=== PATIENT | female | born 1950 | race African-American/Black ===

== ENCOUNTER 2020-12-29 09:00 | Inpatient (IN) ==
[2020-12-29] MEDS ORDERED: GLUCAGON 1 MG VIAL IM PRN ×2 (13:08)
[2020-12-29] MEDS ORDERED: DEXTROSE 50% 25 GM/50 ML VIAL IV PRN ×2 (13:08)
[2020-12-29] MEDS ORDERED: MORPHINE 4 MG/1 ML VIAL IV PRN (13:13)
[2020-12-29] MEDS ORDERED: NITROGLYCERIN SL 0.4 MG TABLET SL PRN (13:13)
[2020-12-29] MEDS ORDERED: CLORAZEPATE 3.75 MG TABLET PO PRN (13:13)
[2020-12-29] MEDS ORDERED: NICOTINE 14 MG/24 HR PATCH TRANSDERM PRN (13:14)
[2020-12-29] MEDS ORDERED: hydrALAZINE 20 MG/1 ML VIAL IV PRN (13:14)
[2020-12-29] MEDS ORDERED: SODIUM CHLORIDE 0.9% 1,000 ML IV SCH (13:30)
[2020-12-29 14:46] LABS: Basophils % 0.6 % (0.0-0.8); Eosinophils # 0.1 10*3/uL (0.0-0.87); Eosinophils % 1.7 % (0.00-10.9); Hematocrit 36.2 VOL% (35.7-47.0); Immature Granulocytes % 0.3 %; Immature Granulocytes Absolute 0.02 #; Lymphocytes # 3.2 10*3/uL (1.4-4.0); Lymphocytes % 45.8 % (21.3-54.2); Mean Corpuscular HGB Conc 33.1 GM/DL (32-36); Mean Corpuscular Volume 99.2 FL (87-102); Mean Platelet Volume 9.8 FL (9.6-12.0); Monocytes % 4.8 % (1.7-12.7); Neutrophils % 46.8 % (38.7-73.9); Platelet Count 246 T/CUMM (130-400); Red Blood Count 3.65 MC/CUMM (3.8-5.5); White Blood Count 7.1 T/CUMM (4-12)
[2020-12-29 15:01] LABS: Alanine Aminotransferase 21 U/L (13-56); Albumin 3.9 G/DL (3.4-5.0); Alkaline Phosphatase 52 U/L (45-117); Aspartate Amino Transferase 10 U/L (0-37); Bilirubin,Total < 0.39 MG/DL (0.2-1.0); Blood Urea Nitrogen 17 MG/DL (7-18); Calcium 9.4 MG/DL (8.5-10.1); Carbon Dioxide 27 MMOL/L (21-32); Estimated Glom Filtration Rate 72 ML/MIN; Glucose 107 MG/DL (74-106); Osmolality,Calculated 282.3 MOS/KG (273-304); Potassium 3.6 MMOL/L (3.5-5.1); Sodium 141 MMOL/L (136-145); Total Protein 7.6 G/DL (6.4-8.3)
[2020-12-29] MEDS: CHLORHEXIDINE 4% SOLN 118 ML BOTTLE TOP SCH ×2 (16:00→20:34)
[2020-12-29] MEDS: INSULIN REGULAR 100 UNIT/ML SUBCUT SCH ×2 (18:25→20:20)
[2020-12-29 20:26] LABS: ABG HCO3 27.9 MMOL/L (20-26); ABG PCO2 42.4 MM HG (35-48); ABG PH 7.438 (7.35-7.45); ABG PO2 70.6 MM HG (80-95); ABG TCO2 25.3 MMOL/L (23-27); Allen Test Positive; Pt O2 Delivery Device Room Air
[2020-12-29] MEDS: CHLORHEXIDINE 0.12% ORAL RINSE 60 ML BOTTLE SWISH/SPIT SCH (22:25)
[2020-12-30] MEDS ORDERED: VANCOMYCIN 1,000 MG VIAL ONE (04:22)
[2020-12-30] MEDS ORDERED: PAPAVERINE 60 MG/2 ML VIAL ONE (04:22)
[2020-12-30] MEDS ORDERED: VANCOMYCIN 500 MG VIAL ONE (04:22)
[2020-12-30] MEDS: CHLORHEXIDINE 4% SOLN 118 ML BOTTLE TOP SCH ×2 (04:46→11:38)
[2020-12-30] MEDS ORDERED: CEFUROXIME INJ 1,500 MG in SYRINGE 1 EACH IV ONE (05:00)
[2020-12-30] MEDS ORDERED: LIDOCAINE 2% 5 ML VIAL ONE ×2 (05:50→09:33)
[2020-12-30] MEDS ORDERED: CALCIUM CHLORIDE 1,000 MG/10 ML VIAL IV ONE ×2 (05:50→09:17)
[2020-12-30] MEDS ORDERED: ETOMIDATE 40 MG/20 ML VIAL IV ONE (05:50)
[2020-12-30] MEDS ORDERED: VECURONIUM 10 MG VIAL IV ONE ×3 (05:50)
[2020-12-30] MEDS ORDERED: MIDAZOLAM 10 MG/2 ML VIAL ONE ×3 (05:51→07:55)
[2020-12-30] MEDS ORDERED: SUFentanil 250 MCG/5 ML AMP ONE ×3 (05:51→07:55)
[2020-12-30] MEDS ORDERED: AMINOCAPROIC ACID 5,000 MG/20 ML VIAL ONE (06:05)
[2020-12-30] MEDS ORDERED: SODIUM CHLORIDE 0.9% 1,000 ML IV ONE (06:06)
[2020-12-30] MEDS ORDERED: LACTATED RINGERS 1,000 ML IV ONE (06:06)
[2020-12-30] MEDS ORDERED: MINERAL OIL/PETROLATUM OPH OINT 3.5 GM TUBE ONE (06:06)
[2020-12-30] MEDS ORDERED: SODIUM CHLORIDE 0.9% 250 ML IV ONE (06:06)
[2020-12-30] MEDS ORDERED: DIAZEPAM 5 MG TABLET PO ONE (06:30)
[2020-12-30] MEDS ORDERED: FAMOTIDINE 20 MG TABLET PO ONE (06:30)
[2020-12-30] MEDS ORDERED: HEPARIN/NACL 0.9% 2 UNITS/ML 500 ML IV ONE ×2 (06:41→08:10)
[2020-12-30 07:31] LABS: ABG Base Excess 0.5 MMOL/L (-2.5-2.5); ABG HCO3 24.9 MMOL/L (20-26); ABG Oxygen Saturation 99.9 % (95-100); ABG PCO2 36.4 MM HG (35-48); ABG PH 7.435 (7.35-7.45); Glucose Heart Surgery 179 MG/DL (74-106); Hematocrit Heart Surgery 32.9 PERCENT (37-47); Hemoglobin Heart Surgery 10.6 G/DL (12.0-16.0); Ionized Calcium Arterial 1.23 MMOL/L (1.21-1.46); PCO2 Patient Temp Arterial 36.4 MMHG; PH Patient Temp Arterial 7.435; Patient Temperature 37 CELCIUS; Potassium Heart/CVR 3.8 MMOL/L (3.5-5.1); Sodium Heart/CVR 140 MMOL/L (135-145)
[2020-12-30 08:07] LABS: Bacteria,Urine Occasional /HPF (Few); Bilirubin,Urine Negative (Negative); Blood, Urine Negative (Negative); Glucose,Urine (UA) Negative (Negative); Ketones,Urine Negative (Negative); Mucus,Urine Occasional /LPF (Occasional); Nitrite,Urine Negative (Negative); Protein,Urine Negative; Squamous Epithelial Cell,Urine Occasional /HPF (0-10); Urine Appearance CLEAR (Clear); Urine Color Yellow (Yellow); Urine Specific Gravity 1.015 (1.001-1.035); Urine Urobilinogen < 2.0 EU/DL (0.2-1.0)
[2020-12-30] MEDS ORDERED: NITROGLYCERIN DRIP 50 MG/250 ML BOTTLE IV ONE ×2 (08:10→20:00)
[2020-12-30] MEDS ORDERED: PHENYLEPHRINE DRIP 20 MG/250 ML PREMIX IV ONE (08:10)
[2020-12-30] MEDS ORDERED: CALCIUM CHLORIDE 1,000 MG/10 ML SYRINGE IV ONE (08:22)
[2020-12-30] MEDS ORDERED: NITROPRUSSIDE 50 MG/2 ML VIAL ONE (08:22)
[2020-12-30] MEDS ORDERED: POTASSIUM CHLORIDE RIDER 100 ML IV ONE (08:22)
[2020-12-30] MEDS ORDERED: PHENYLEPHRINE DRIP 40 MG/250 ML PREMIX IV ONE (08:22)
[2020-12-30] MEDS ORDERED: SODIUM BICARBONATE 50 MEQ/50 ML VIAL IV ONE ×3 (08:22→22:39)
[2020-12-30] MEDS ORDERED: ALBUMIN 5% 12.5 GM/250 ML VIAL IV ONE ×2 (08:23→09:34)
[2020-12-30 08:46] LABS: Hematocrit Heart Surgery 20.8 PERCENT (37-47); Hemoglobin Heart Surgery 6.6 G/DL (12.0-16.0); PCO2 Patient Temp Venous 35.4 MM HG; PH Patient Temp Venous 7.465; PO2 Patient Temp Venous 32.7 MM HG; Potassium Heart/CVR 4.2 MMOL/L (3.5-5.1); VBG HCO3 25.9 MEQ/L (24-28); VBG Oxygen Saturation 70.8 %; VBG PH 7.436; VBG PO2 37.6 MMHG (17-40)
[2020-12-30 09:27] LABS: ABG Base Excess -1.6 MMOL/L (-2.5-2.5); ABG HCO3 23.1 MMOL/L (20-26); ABG PCO2 38.6 MM HG (35-48); ABG PH 7.387 (7.35-7.45); ABG TCO2 21.8 MMOL/L (23-27); Glucose Heart Surgery 300 MG/DL (74-106); Hematocrit Heart Surgery 23.1 PERCENT (37-47); Hemoglobin Heart Surgery 7.4 G/DL (12.0-16.0); Ionized Calcium Arterial 1.28 MMOL/L (1.21-1.46); PCO2 Patient Temp Arterial 38.6 MMHG; PH Patient Temp Arterial 7.387; Patient Temperature 37 CELCIUS; Potassium Heart/CVR 3.3 MMOL/L (3.5-5.1); Sodium Heart/CVR 132 MMOL/L (135-145)
[2020-12-30] MEDS ORDERED: methylPREDNISolone SOD SUC 1,000 MG/8 ML VIAL ONE (09:33)
[2020-12-30] MEDS ORDERED: DEXTROSE 5% KCL 20 MEQ 20 MEQ/1,000 ML BAG IV ONE (09:33)
[2020-12-30] MEDS ORDERED: MAGNESIUM SULFATE 5 GM/10 ML VIAL IV ONE (09:33)
[2020-12-30] MEDS ORDERED: HEPARIN 10,000 UNIT/10 ML VIAL ONE (09:34)
[2020-12-30] MEDS ORDERED: MANNITOL 12.5 GM/50 ML VIAL IV ONE (09:34)
[2020-12-30] MEDS ORDERED: PROTAMINE SULFATE 50 MG/5 ML VIAL IV ONE (09:34)
[2020-12-30] MEDS ORDERED: ALBUMIN 25% 25 GM/100 ML VIAL IV ONE (09:34)
[2020-12-30] MEDS ORDERED: FUROSEMIDE 20 MG/2 ML VIAL ONE (09:34)
[2020-12-30] MEDS ORDERED: DEXTROSE 50% 25 GM/50 ML VIAL IV PRN ×2 (10:03)
[2020-12-30] MEDS ORDERED: MIDAZOLAM 10 MG/2 ML VIAL IV PRN (10:03)
[2020-12-30] MEDS ORDERED: MAGNESIUM SULF RIDER 4 GM in PREMIX 1 EACH IV PRN (10:03)
[2020-12-30] MEDS ORDERED: SODIUM CHLORIDE 0.45% 1,000 ML IV SCH ×2 (10:03)
[2020-12-30] MEDS ORDERED: CHLORHEXIDINE 4% SOLN 118 ML BOTTLE TOP PRN (10:03)
[2020-12-30] MEDS ORDERED: INSULIN REGULAR 100 UNIT/ML IV ONE (10:03)
[2020-12-30] MEDS ORDERED: LACTATED RINGERS 250 ML IV PRN (10:03)
[2020-12-30] MEDS ORDERED: CALCIUM CHLORIDE 1,000 MG/10 ML SYRINGE IV PRN (10:03)
[2020-12-30] MEDS ORDERED: MORPHINE 10 MG/1 ML VIAL IV PRN (10:03)
[2020-12-30] MEDS ORDERED: PHENYLEPHRINE DRIP 40 MG/250 ML PREMIX IV PRN (10:03)
[2020-12-30] MEDS ORDERED: MAGNESIUM SULF RIDER 2 GM in PREMIX 1 EACH IV PRN (10:03)
[2020-12-30] MEDS ORDERED: VECURONIUM 10 MG VIAL IV PRN ×2 (10:03)
[2020-12-30] MEDS ORDERED: ACETAMINOPHEN 650 MG SUPP RECTAL PRN (10:03)
[2020-12-30] MEDS ORDERED: MIDAZOLAM 2 MG/2 ML VIAL IV PRN (10:03)
[2020-12-30] MEDS ORDERED: NITROPRUSSIDE 100 MG in DEXTROSE 5% 250 ML IV PRN (10:03)
[2020-12-30 10:39] LABS: ABG Base Excess -0.6 MMOL/L (-2.5-2.5); ABG HCO3 23.9 MMOL/L (20-26); ABG Oxygen Saturation 97.8 % (95-100); ABG PCO2 37.7 MM HG (35-48); ABG PH 7.408 (7.35-7.45); ABG PO2 91.8 MM HG (80-95); ABG TCO2 21.7 MMOL/L (23-27); Glucose Heart Surgery 223 MG/DL (74-106); Hematocrit Heart Surgery 30.3 PERCENT (37-47); Hemoglobin Heart Surgery 9.8 G/DL (12.0-16.0); Potassium Heart/CVR 3.9 MMOL/L (3.5-5.1)
[2020-12-30] MEDS: LACTATED RINGERS 1,000 ML IV PRN ×2 (10:45→15:03)
[2020-12-30 10:54] LABS: Basophils % 0.4 % (0.0-0.8); Eosinophils # 0.1 10*3/uL (0.0-0.87); Eosinophils % 0.8 % (0.00-10.9); Hematocrit 28.8 VOL% (35.7-47.0); Immature Granulocytes % 0.9 %; Immature Granulocytes Absolute 0.07 #; Lymphocytes # 1.1 10*3/uL (1.4-4.0); Lymphocytes % 14.4 % (21.3-54.2); Mean Corpuscular HGB Conc 33.3 GM/DL (32-36); Mean Corpuscular Volume 99.3 FL (87-102); Mean Platelet Volume 9.8 FL (9.6-12.0); Neutrophils % 79.5 % (38.7-73.9); Platelet Count 198 T/CUMM (130-400); White Blood Count 7.9 T/CUMM (4-12)
[2020-12-30 10:55] LABS: Hemoglobin 9.6 GM/DL (12.0-16.0)
[2020-12-30] MEDS: POTASSIUM CHLORIDE RIDER 20 MEQ in PREMIX 1 EACH IV PRN ×6 (11:03→23:44)
[2020-12-30 11:05] LABS: Albumin 3.5 G/DL (3.4-5.0); Bilirubin,Total 0.7 MG/DL (0.2-1.0); Calcium 9.7 MG/DL (8.5-10.1); Osmolality,Calculated 280.8 MOS/KG (273-304); Potassium 3.9 MMOL/L (3.5-5.1); Total Protein 6.3 G/DL (6.4-8.3)
[2020-12-30 11:07] LABS: Troponin I 0.581 NG/ML (0.00-0.045)
[2020-12-30 11:37] LABS: INR 1.1; PT Patient Result 11.6 SECS (9.8-11.9); Partial Thromboplastin Time 26.4 SECS (23.9-33.8)
[2020-12-30] MEDS: POTASSIUM CHLORIDE RIDER 10 MEQ in PREMIX 1 EACH IV PRN ×3 (11:37→21:22)
[2020-12-30] MEDS: ALBUMIN 5% 12.5 GM in PREMIX 1 EACH IV PRN ×2 (11:54→15:04)
[2020-12-30 12:42] LABS: ABG Base Excess 0.2 MMOL/L (-2.5-2.5); ABG HCO3 24.6 MMOL/L (20-26); ABG Oxygen Saturation 99.6 % (95-100); ABG PCO2 34.1 MM HG (35-48); ABG TCO2 21.6 MMOL/L (23-27); Glucose Heart Surgery 203 MG/DL (74-106); Hematocrit Heart Surgery 29.7 PERCENT (37-47); Hemoglobin Heart Surgery 9.6 G/DL (12.0-16.0); Potassium Heart/CVR 3.8 MMOL/L (3.5-5.1)
[2020-12-30] MEDS: INSULIN REGULAR DRIP 100 ML IV SCH (12:53)
[2020-12-30] MEDS: INSULIN REGULAR 100 UNIT/ML SUBCUT SCH (13:06)
[2020-12-30] MEDS: CHLORHEXIDINE 0.12% ORAL RINSE 60 ML BOTTLE SWISH/SPIT SCH (13:06)
[2020-12-30 15:49] LABS: ABG Base Excess -0.3 MMOL/L (-2.5-2.5); ABG HCO3 24.2 MMOL/L (20-26); ABG PCO2 34.7 MM HG (35-48); ABG PH 7.438 (7.35-7.45); ABG TCO2 21.3 MMOL/L (23-27); Glucose Heart Surgery 157 MG/DL (74-106); Hematocrit Heart Surgery 30.6 PERCENT (37-47); Hemoglobin Heart Surgery 9.9 G/DL (12.0-16.0); Potassium Heart/CVR 3.5 MMOL/L (3.5-5.1)
[2020-12-30] MEDS: CEFUROXIME INJ 1,500 MG in SYRINGE 1 EACH IV SCH (17:17)
[2020-12-30 18:13] LABS: ABG Base Excess -1.9 MMOL/L (-2.5-2.5); ABG HCO3 22.8 MMOL/L (20-26); ABG Oxygen Saturation 98.7 % (95-100); ABG PCO2 38.9 MM HG (35-48); ABG PH 7.379 (7.35-7.45); ABG TCO2 21.1 MMOL/L (23-27); Glucose Heart Surgery 166 MG/DL (74-106); Hematocrit Heart Surgery 28.9 PERCENT (37-47); Hemoglobin Heart Surgery 9.3 G/DL (12.0-16.0); Potassium Heart/CVR 3.8 MMOL/L (3.5-5.1)
[2020-12-30] MEDS: INSULIN REGULAR 100 UNIT/ML IV PRN ×2 (18:25→21:56)
[2020-12-30] MEDS: MORPHINE 4 MG/1 ML VIAL IV PRN ×2 (19:50→22:48)
[2020-12-30] MEDS ORDERED: NITROGLYCERIN DRIP 50 MG/250 ML BOTTLE IV PRN (20:03)
[2020-12-30 20:15] LABS: ABG Base Excess -4.9 MMOL/L (-2.5-2.5); ABG HCO3 20.4 MMOL/L (20-26); ABG Oxygen Saturation 98.1 % (95-100); ABG PCO2 38.3 MM HG (35-48); ABG PH 7.336 (7.35-7.45); ABG TCO2 18.7 MMOL/L (23-27); Glucose Heart Surgery 181 MG/DL (74-106); Hematocrit Heart Surgery 31.7 PERCENT (37-47); Hemoglobin Heart Surgery 10.3 G/DL (12.0-16.0); Potassium Heart/CVR 3.5 MMOL/L (3.5-5.1)
[2020-12-30] MEDS ORDERED: CHLORHEXIDINE 0.12% ORAL RINSE 60 ML BOTTLE SWISH/SPIT SCH (21:00)
[2020-12-30] MEDS: ONDANSETRON 4 MG/2 ML VIAL IV PRN (21:05)
[2020-12-30] MEDS ORDERED: FUROSEMIDE 40 MG/4 ML VIAL IV ONE (21:09)
[2020-12-30 22:24] LABS: ABG Base Excess -6.9 MMOL/L (-2.5-2.5); ABG HCO3 18.8 MMOL/L (20-26); ABG PCO2 35.7 MM HG (35-48); ABG PH 7.323 (7.35-7.45); ABG PO2 85.6 MM HG (80-95); ABG TCO2 16.9 MMOL/L (23-27); Glucose Heart Surgery 209 MG/DL (74-106); Hematocrit Heart Surgery 32.2 PERCENT (37-47); Hemoglobin Heart Surgery 10.4 G/DL (12.0-16.0); Potassium Heart/CVR 3.7 MMOL/L (3.5-5.1)
[2020-12-30 23:38] LABS: ABG Base Excess -2.8 MMOL/L (-2.5-2.5); ABG HCO3 22.1 MMOL/L (20-26); ABG Oxygen Saturation 95.6 % (95-100); ABG PCO2 39.5 MM HG (35-48); ABG PH 7.362 (7.35-7.45); ABG PO2 79.3 MM HG (80-95); ABG TCO2 20.4 MMOL/L (23-27); Glucose Heart Surgery 192 MG/DL (74-106); Hematocrit Heart Surgery 31.8 PERCENT (37-47); Hemoglobin Heart Surgery 10.3 G/DL (12.0-16.0); Potassium Heart/CVR 3.6 MMOL/L (3.5-5.1)
[2020-12-31] MEDS: INSULIN REGULAR 100 UNIT/ML IV PRN (00:01)
[2020-12-31] MEDS: POTASSIUM CHLORIDE RIDER 10 MEQ in PREMIX 1 EACH IV PRN ×2 (00:21→03:37)
[2020-12-31] MEDS: INSULIN REGULAR DRIP 100 ML IV SCH (00:26)
[2020-12-31 01:41] LABS: ABG HCO3 23.6 MMOL/L (20-26); ABG Oxygen Saturation 97.4 % (95-100); ABG PCO2 38.6 MM HG (35-48); ABG PH 7.396 (7.35-7.45); ABG PO2 89.1 MM HG (80-95); ABG TCO2 21.4 MMOL/L (23-27); Glucose Heart Surgery 133 MG/DL (74-106); Hematocrit Heart Surgery 31.9 PERCENT (37-47); Hemoglobin Heart Surgery 10.3 G/DL (12.0-16.0); Potassium Heart/CVR 3.9 MMOL/L (3.5-5.1)
[2020-12-31 02:34] LABS: ABG Base Excess -0.9 MMOL/L (-2.5-2.5); ABG HCO3 23.7 MMOL/L (20-26); ABG Oxygen Saturation 96.2 % (95-100); ABG PCO2 38.8 MM HG (35-48); ABG PH 7.395 (7.35-7.45); ABG PO2 79.2 MM HG (80-95); ABG TCO2 21.6 MMOL/L (23-27); Glucose Heart Surgery 108 MG/DL (74-106); Hematocrit Heart Surgery 31.9 PERCENT (37-47); Hemoglobin Heart Surgery 10.3 G/DL (12.0-16.0); Potassium Heart/CVR 3.7 MMOL/L (3.5-5.1)
[2020-12-31] MEDS: ONDANSETRON 4 MG/2 ML VIAL IV PRN (02:34)
[2020-12-31] MEDS: POTASSIUM CHLORIDE RIDER 20 MEQ in PREMIX 1 EACH IV PRN (03:05)
[2020-12-31 03:55] LABS: ABG Base Excess -0.5 MMOL/L (-2.5-2.5); ABG HCO3 23.9 MMOL/L (20-26); ABG Oxygen Saturation 94.5 % (95-100); ABG PCO2 37.9 MM HG (35-48); ABG PH 7.417 (7.35-7.45); ABG PO2 77.2 MM HG (80-95); Glucose Heart Surgery 113 MG/DL (74-106); Hemoglobin Heart Surgery 10.3 G/DL (12.0-16.0); Potassium Heart/CVR 4.7 MMOL/L (3.5-5.1)
[2020-12-31 04:10] LABS: Basophils % 0.1 % (0.0-0.8); Hematocrit 29.4 VOL% (35.7-47.0); Hemoglobin 9.8 GM/DL (12.0-16.0); Immature Granulocytes % 0.8 %; Immature Granulocytes Absolute 0.15 #; Lymphocytes # 0.9 10*3/uL (1.4-4.0); Lymphocytes % 4.7 % (21.3-54.2); Mean Corpuscular HGB Conc 33.3 GM/DL (32-36); Mean Corpuscular Volume 96.7 FL (87-102); Monocytes % 8.2 % (1.7-12.7); Neutrophils % 86.2 % (38.7-73.9); Platelet Count 215 T/CUMM (130-400); Red Blood Count 3.04 MC/CUMM (3.8-5.5); Red Cell Distribution Width 15.6 % (9.3-17.3); White Blood Count 18.3 T/CUMM (4-12)
[2020-12-31 04:23] LABS: Albumin 3.9 G/DL (3.4-5.0); Bilirubin,Direct 0.16 MG/DL (0.0-0.20); Bilirubin,Total 0.6 MG/DL (0.2-1.0); Calcium 9.1 MG/DL (8.5-10.1); Osmolality,Calculated 285.1 MOS/KG (273-304); Potassium 4.9 MMOL/L (3.5-5.1); Total Protein 6.4 G/DL (6.4-8.3)
[2020-12-31 04:26] LABS: Troponin I 0.967 NG/ML (0.00-0.045)
[2020-12-31 04:48] LABS: Microcytosis 1+; Platelet Estimate Normal
[2020-12-31 05:00] LABS: ABG Base Excess -1.4 MMOL/L (-2.5-2.5); ABG HCO3 23.2 MMOL/L (20-26); ABG Oxygen Saturation 95.4 % (95-100); ABG PCO2 44.7 MM HG (35-48); ABG PH 7.345 (7.35-7.45); ABG PO2 79.5 MM HG (80-95); ABG TCO2 22.4 MMOL/L (23-27); Glucose Heart Surgery 176 MG/DL (74-106); Hematocrit Heart Surgery 30.5 PERCENT (37-47); Hemoglobin Heart Surgery 9.9 G/DL (12.0-16.0); Potassium Heart/CVR 4.6 MMOL/L (3.5-5.1)
[2020-12-31] MEDS: CEFUROXIME INJ 1,500 MG in SYRINGE 1 EACH IV SCH ×2 (06:30→17:33)
[2020-12-31] MEDS: INSULIN REGULAR 100 UNIT/ML SUBCUT SCH ×4 (07:39→22:29)
[2020-12-31] MEDS: KETOROLAC 15 MG/1 ML VIAL IV SCH ×3 (07:39→21:11)
[2020-12-31] MEDS ORDERED: DEXTROSE 50% 25 GM/50 ML VIAL IV PRN ×2 (07:57)
[2020-12-31] MEDS ORDERED: MAGNESIUM SULF RIDER 4 GM in PREMIX 1 EACH IV PRN (07:57)
[2020-12-31] MEDS ORDERED: MAGNESIUM HYDROXIDE SUSP 30 ML UDCUP PO PRN (07:57)
[2020-12-31] MEDS ORDERED: ONDANSETRON 4 MG/2 ML VIAL IV PRN (07:57)
[2020-12-31] MEDS ORDERED: GLUCAGON 1 MG VIAL IM PRN ×2 (07:57)
[2020-12-31] MEDS ORDERED: ACETAMINOPHEN 325 MG TABLET PO PRN (07:57)
[2020-12-31] MEDS ORDERED: MAGNESIUM SULF RIDER 2 GM in PREMIX 1 EACH IV PRN (07:57)
[2020-12-31] MEDS ORDERED: oxyCODONE/ACETAMINOPHEN 5-325 MG TABLET PO PRN (07:57)
[2020-12-31] MEDS ORDERED: ALUMINUM/MAGNES/SIMETH MAX STR 30 ML UDCUP PO PRN (07:57)
[2020-12-31] MEDS ORDERED: ZALEPLON 5 MG CAPSULE PO PRN (07:57)
[2020-12-31] MEDS: DOCUSATE SODIUM 100 MG CAPSULE PO SCH (08:28)
[2020-12-31] MEDS: FERROUS SULFATE 325 MG TABLET PO SCH (08:28)
[2020-12-31] MEDS: hydroCHLOROthiazide 25 MG TABLET PO SCH (08:28)
[2020-12-31] MEDS: SODIUM CHLOR 0.45% KCL 20 MEQ 20 MEQ/1,000 ML BAG IV SCH (08:28)
[2020-12-31] MEDS: ASPIRIN EC 325 MG TABLET PO SCH (08:28)
[2020-12-31] MEDS: atenoloL 50 MG TABLET PO SCH (08:29)
[2020-12-31] MEDS: CHLORHEXIDINE 0.12% ORAL RINSE 60 ML BOTTLE SWISH/SPIT SCH ×2 (08:29→21:11)
[2020-12-31] MEDS: PANTOPRAZOLE 40 MG TABLET PO SCH (08:29)
[2020-12-31] MEDS: LEVOTHYROXINE 88 MCG TABLET PO SCH (08:29)
[2020-12-31 11:14] LABS: Troponin I 0.785 NG/ML (0.00-0.045)
[2020-12-31] MEDS: SIMVASTATIN 20 MG TABLET PO SCH (21:11)
[2021-01-01] MEDS: KETOROLAC 15 MG/1 ML VIAL IV SCH ×4 (01:28→18:54)
[2021-01-01] MEDS ORDERED: FUROSEMIDE 40 MG/4 ML VIAL IV ONE (06:00)
[2021-01-01 07:06] LABS: Basophils % 0.1 % (0.0-0.8); Hematocrit 21.3 VOL% (35.7-47.0); Immature Granulocytes % 1.3 %; Immature Granulocytes Absolute 0.24 #; Lymphocytes # 1.5 10*3/uL (1.4-4.0); Lymphocytes % 7.8 % (21.3-54.2); Mean Corpuscular HGB Conc 33.8 GM/DL (32-36); Mean Corpuscular Volume 99.1 FL (87-102); Mean Platelet Volume 10.8 FL (9.6-12.0); Monocytes % 4.4 % (1.7-12.7); Neutrophils % 86.4 % (38.7-73.9); Platelet Count 184 T/CUMM (130-400); Red Cell Distribution Width 15.4 % (9.3-17.3); White Blood Count 19.1 T/CUMM (4-12)
[2021-01-01 07:08] LABS: Hemoglobin 7.2 GM/DL (12.0-16.0); Red Blood Count 2.15 MC/CUMM (3.8-5.5)
[2021-01-01 07:28] LABS: Alanine Aminotransferase 15 U/L (13-56); Albumin 3.3 G/DL (3.4-5.0); Alkaline Phosphatase 40 U/L (45-117); Aspartate Amino Transferase 17 U/L (0-37); Bilirubin,Indirect 0.8 MG/DL (0.0-1.0); Blood Urea Nitrogen 33 MG/DL (7-18); Calcium 9.3 MG/DL (8.5-10.1); Carbon Dioxide 26 MMOL/L (21-32); Estimated Glom Filtration Rate 67 ML/MIN; Glucose 161 MG/DL (74-106); Osmolality,Calculated 284.7 MOS/KG (273-304); Potassium 4.5 MMOL/L (3.5-5.1); Sodium 138 MMOL/L (136-145); Total Protein 6.4 G/DL (6.4-8.3)
[2021-01-01 07:32] LABS: Troponin I 0.401 NG/ML (0.00-0.045)
[2021-01-01] MEDS ORDERED: SODIUM CHLORIDE 0.9% 1,000 ML IV PRN (08:49)
[2021-01-01] MEDS: atenoloL 50 MG TABLET PO SCH (10:40)
[2021-01-01] MEDS: DOCUSATE SODIUM 100 MG CAPSULE PO SCH (10:40)
[2021-01-01] MEDS: LEVOTHYROXINE 88 MCG TABLET PO SCH (10:40)
[2021-01-01] MEDS: ASPIRIN EC 325 MG TABLET PO SCH (10:40)
[2021-01-01] MEDS: PANTOPRAZOLE 40 MG TABLET PO SCH (10:41)
[2021-01-01] MEDS: FERROUS SULFATE 325 MG TABLET PO SCH (10:41)
[2021-01-01] MEDS: hydroCHLOROthiazide 25 MG TABLET PO SCH (10:41)
[2021-01-01] MEDS: INSULIN REGULAR 100 UNIT/ML SUBCUT SCH ×4 (11:05→20:44)
[2021-01-01] MEDS: SODIUM CHLOR 0.45% KCL 20 MEQ 20 MEQ/1,000 ML BAG IV SCH (11:05)
[2021-01-01] MEDS: CHLORHEXIDINE 0.12% ORAL RINSE 60 ML BOTTLE SWISH/SPIT SCH ×2 (11:06→20:44)
[2021-01-01] MEDS: SIMVASTATIN 20 MG TABLET PO SCH (20:44)
[2021-01-02] MEDS: KETOROLAC 15 MG/1 ML VIAL IV SCH ×4 (00:55→21:11)
[2021-01-02 04:52] LABS: Basophils % 0.1 % (0.0-0.8); Hematocrit 34.3 VOL% (35.7-47.0); Hemoglobin 11.8 GM/DL (12.0-16.0); Immature Granulocytes % 1.1 %; Immature Granulocytes Absolute 0.14 #; Lymphocytes # 1.6 10*3/uL (1.4-4.0); Mean Corpuscular HGB Conc 34.4 GM/DL (32-36); Mean Corpuscular Volume 92.7 FL (87-102); Mean Platelet Volume 10.4 FL (9.6-12.0); Monocytes % 5.4 % (1.7-12.7); Neutrophils % 80.4 % (38.7-73.9); Platelet Count 157 T/CUMM (130-400); Red Cell Distribution Width 15.9 % (9.3-17.3); White Blood Count 12.6 T/CUMM (4-12)
[2021-01-02 05:13] LABS: Alanine Aminotransferase 21 U/L (13-56); Albumin 3.1 G/DL (3.4-5.0); Alkaline Phosphatase 41 U/L (45-117); Aspartate Amino Transferase 13 U/L (0-37); Bilirubin,Indirect 0.6 MG/DL (0.0-1.0); Blood Urea Nitrogen 34 MG/DL (7-18); Calcium 9.1 MG/DL (8.5-10.1); Estimated Glom Filtration Rate 77 ML/MIN; Glucose 156 MG/DL (74-106); Total Protein 6.5 G/DL (6.4-8.3)
[2021-01-02 05:16] LABS: Osmolality,Calculated 285.7 MOS/KG (273-304); Potassium 4.1 MMOL/L (3.5-5.1); Sodium 138 MMOL/L (136-145)
[2021-01-02 05:19] LABS: Carbon Dioxide 29 MMOL/L (21-32)
[2021-01-02 05:22] LABS: Troponin I 0.207 NG/ML (0.00-0.045)
[2021-01-02] MEDS: ASPIRIN EC 325 MG TABLET PO SCH (09:57)
[2021-01-02] MEDS: CHLORHEXIDINE 0.12% ORAL RINSE 60 ML BOTTLE SWISH/SPIT SCH ×2 (09:57→21:11)
[2021-01-02] MEDS: atenoloL 50 MG TABLET PO SCH (09:57)
[2021-01-02] MEDS: DOCUSATE SODIUM 100 MG CAPSULE PO SCH (09:57)
[2021-01-02] MEDS: PANTOPRAZOLE 40 MG TABLET PO SCH (09:57)
[2021-01-02] MEDS: LEVOTHYROXINE 88 MCG TABLET PO SCH (09:57)
[2021-01-02] MEDS: hydroCHLOROthiazide 25 MG TABLET PO SCH (09:57)
[2021-01-02] MEDS: FERROUS SULFATE 325 MG TABLET PO SCH (09:57)
[2021-01-02] MEDS: INSULIN REGULAR 100 UNIT/ML SUBCUT SCH ×4 (10:02→21:11)
[2021-01-02] MEDS: SIMVASTATIN 20 MG TABLET PO SCH (21:11)
[2021-01-03] MEDS: KETOROLAC 15 MG/1 ML VIAL IV SCH ×4 (01:00→18:51)
[2021-01-03 06:33] LABS: Basophils % 0.1 % (0.0-0.8); Eosinophils # 0.1 10*3/uL (0.0-0.87); Eosinophils % 0.7 % (0.00-10.9); Hematocrit 36.3 VOL% (35.7-47.0); Hemoglobin 12.2 GM/DL (12.0-16.0); Immature Granulocytes % 0.8 %; Immature Granulocytes Absolute 0.07 #; Lymphocytes # 2.6 10*3/uL (1.4-4.0); Mean Corpuscular HGB Conc 33.6 GM/DL (32-36); Mean Corpuscular Volume 95.5 FL (87-102); Mean Platelet Volume 10.5 FL (9.6-12.0); Monocytes % 7.7 % (1.7-12.7); Neutrophils % 60.7 % (38.7-73.9); Platelet Count 169 T/CUMM (130-400); White Blood Count 8.7 T/CUMM (4-12)
[2021-01-03 07:54] LABS: Calcium 8.9 MG/DL (8.5-10.1); Potassium 3.5 MMOL/L (3.5-5.1)
[2021-01-03] MEDS: ASPIRIN EC 325 MG TABLET PO SCH (08:33)
[2021-01-03] MEDS: DOCUSATE SODIUM 100 MG CAPSULE PO SCH (08:33)
[2021-01-03] MEDS: FERROUS SULFATE 325 MG TABLET PO SCH (08:34)
[2021-01-03] MEDS: hydroCHLOROthiazide 25 MG TABLET PO SCH (08:35)
[2021-01-03] MEDS: PANTOPRAZOLE 40 MG TABLET PO SCH (08:36)
[2021-01-03] MEDS: LEVOTHYROXINE 88 MCG TABLET PO SCH (08:36)
[2021-01-03] MEDS: CHLORHEXIDINE 0.12% ORAL RINSE 60 ML BOTTLE SWISH/SPIT SCH ×2 (08:36→21:10)
[2021-01-03] MEDS: atenoloL 50 MG TABLET PO SCH (08:37)
[2021-01-03] MEDS: POTASSIUM CHLORIDE 20 MEQ TABLET PO PRN ×2 (08:37→09:29)
[2021-01-03] MEDS: INSULIN REGULAR 100 UNIT/ML SUBCUT SCH ×4 (08:38→21:10)
[2021-01-03] MEDS ORDERED: LOSARTAN 50 MG TABLET PO SCH (09:00)
[2021-01-03] MEDS ORDERED: LOSARTAN 25 MG TABLET PO SCH (09:00)
[2021-01-03] MEDS: glipiZIDE 10 MG TABLET PO SCH (16:22)
[2021-01-03] MEDS: metFORMIN 500 MG TABLET PO SCH (16:22)
[2021-01-03] MEDS: SIMVASTATIN 20 MG TABLET PO SCH (21:10)
[2021-01-04] MEDS: KETOROLAC 15 MG/1 ML VIAL IV SCH ×2 (00:24→06:28)
[2021-01-04 04:39] LABS: Basophils % 0.1 % (0.0-0.8); Eosinophils # 0.1 10*3/uL (0.0-0.87); Eosinophils % 1.7 % (0.00-10.9); Hematocrit 36.8 VOL% (35.7-47.0); Hemoglobin 12.1 GM/DL (12.0-16.0); Immature Granulocytes % 1.1 %; Immature Granulocytes Absolute 0.08 #; Lymphocytes # 2.6 10*3/uL (1.4-4.0); Lymphocytes % 34.1 % (21.3-54.2); Mean Corpuscular HGB Conc 32.9 GM/DL (32-36); Mean Corpuscular Volume 96.1 FL (87-102); Monocytes % 7.5 % (1.7-12.7); Neutrophils % 55.5 % (38.7-73.9); Platelet Count 182 T/CUMM (130-400); Red Blood Count 3.83 MC/CUMM (3.8-5.5); Red Cell Distribution Width 14.5 % (9.3-17.3); White Blood Count 7.5 T/CUMM (4-12)
[2021-01-04 05:07] LABS: Alanine Aminotransferase 25 U/L (13-56); Alkaline Phosphatase 46 U/L (45-117); Aspartate Amino Transferase 10 U/L (0-37); Bilirubin,Indirect 0.4 MG/DL (0.0-1.0); Blood Urea Nitrogen 23 MG/DL (7-18); Calcium 9.1 MG/DL (8.5-10.1); Carbon Dioxide 28 MMOL/L (21-32); Estimated Glom Filtration Rate 75 ML/MIN; Glucose 159 MG/DL (74-106); Osmolality,Calculated 285.4 MOS/KG (273-304); Potassium 3.6 MMOL/L (3.5-5.1); Sodium 140 MMOL/L (136-145); Total Protein 6.2 G/DL (6.4-8.3)
[2021-01-04 05:10] LABS: Troponin I 0.089 NG/ML (0.00-0.045)
[2021-01-04] MEDS ORDERED: LOSARTAN 25 MG TABLET PO SCH (07:32)
[2021-01-04 08:25] VITALS: BP 154/74
[2021-01-04] MEDS: INSULIN REGULAR 100 UNIT/ML SUBCUT SCH ×2 (09:30→11:30)
[2021-01-04] MEDS: metFORMIN 500 MG TABLET PO SCH (09:31)
[2021-01-04] MEDS: ASPIRIN EC 325 MG TABLET PO SCH (09:31)
[2021-01-04] MEDS: atenoloL 50 MG TABLET PO SCH (09:31)
[2021-01-04] MEDS: glipiZIDE 10 MG TABLET PO SCH (09:31)
[2021-01-04] MEDS: DOCUSATE SODIUM 100 MG CAPSULE PO SCH (09:31)
[2021-01-04] MEDS: FERROUS SULFATE 325 MG TABLET PO SCH (09:32)
[2021-01-04] MEDS: hydroCHLOROthiazide 25 MG TABLET PO SCH (09:32)
[2021-01-04] MEDS: PANTOPRAZOLE 40 MG TABLET PO SCH (09:32)
[2021-01-04] MEDS: LEVOTHYROXINE 88 MCG TABLET PO SCH (09:32)
[2021-01-04] MEDS: CHLORHEXIDINE 0.12% ORAL RINSE 60 ML BOTTLE SWISH/SPIT SCH (10:50)
== END 2021-01-04 11:42 | disposition home health service (06) | DRG 236 ==
LOC: N.4E 13:56 → N.CVR 12-30 10:04 → N.ICU 12-31 10:26 → N.TELES 12-31 14:35